=== PATIENT | male | born 1975 | race Caucasian/White ===

== ENCOUNTER 2018-12-26 11:37 | Inpatient (IN) | payer OTHER ==
[2018-12-26 12:06] VITALS: BMI 21.8
--- NOTE | 2018-12-26 14:48 | HP ---
COWS - Scale Resting Pulse: 0= [place] 80 or Below Sweatin= Chills/Flushing Restless Observation: 3= Extraneous Movement Pupil Size: 1= Pupils >than Normal Bone or Joint Aches: 2= Severe Diffuse Aches Runny Nose/ Eye Tearin= Runny Nose/Eyes GI Upset > 30mins: 2= Nausea/Diarrhea Tremor Observation: 2= Slight Tremor Visible Yawning Observation: 2= >3x During Session Anxiety or Irritability: 2=Irritable/Anxious Goose Flesh Skin: 0=Smooth Skin COWS Score: 17 CIWA Score - Admission Criteria [facility] Guidelines: Admission for Medically Managed Detox: Requires at least one of the followin. CIWA greater than 12 2. Seizures within the past 24 hours 3. Delirium tremens within the past 24 hours 4. Hallucinations within the past 24 hours 5. Acute intervention needed for co occurring medical disorder 6. Acute intervention needed for co occurring psychiatric disorder 7. Severe withdrawal that cannot be handled at a lower level of care (continued vomiting, continued diarrhea, abnormal vital signs) requiring intravenous medication and/or fluids 8. Admission ROS S - HPI Chief Complaint: i need help to stop using heroin Allergies/Adverse Reactions: Allergies Allergy/AdvReac Type Severity Reaction Status Date / Time No Known Allergies Allergy Verified 12/26/18 14:14 History of Present Illness: this 43 years old male with heroin dependence,seeking help,withdrawal symptom, i stop showed patient on suboxone 8mgs/2 mgs sl bid,last filled on 12/20/18 for 1 week, note from pmd will stop prescribed suboxone last detox 2017 [facility] completed multiple admissions in the past but keep relapsing nicotine dependence 10 cigarette weight loss no significant period of sobriety plan for rehab after detox Exam Limitations: No Limitations - Ebola screening Have you traveled outside of the country in the last 21 days: No Have you had contact with anyone from an Ebola affected area: No Have you been sick,other than usual withdrawal symptoms: No Do you have a fever: No - Review of Systems Constitutional: Chills, Loss of Appetite, Malaise, Night Sweats, Changes in sleep, Unintentional Wgt. Loss EENT: reports: Tearing, Nose Congestion Respiratory: reports: No Symptoms reported Cardiac: reports: No Symptoms Reported GI: reports: Nausea, Poor Appetite, Indigestion, Abdominal cramping : reports: No Symptoms Reported Musculoskeletal: reports: Back Pain, Joint Pain, Joint Swelling, Muscle Pain Integumentary: reports: Dryness Neuro: reports: Headache, Tremors Endocrine: reports: No Symptoms Reported Hematology: reports: No Symptoms Reported Psychiatric: reports: No Sypmtoms Reported, Judgement Intact, Mood/Affect Appropiate, Orientated x3 Other Systems: Reviewed and Negative Patient History - Patient Medical History Hx Anemia: No Hx Asthma: No Hx Chronic Obstructive Pulmonary Disease (COPD): No Hx Cardiac Disorders: No Hx Congestive Heart Failure: No Hx Hypertension: No Hx Hypercholesterolemia: No Hx Pacemaker: No HX Cerebrovascular Accident: No Hx Seizures: No Hx Dementia: No Hx Diabetes: No Hx Gastrointestinal Disorders: No Hx Liver Disease: No Hx Genitourinary Disorders: No Hx Sexually Transmitted Disorders: No Hx Renal Disease (ESRD): No Hx Thyroid Disease: No Hx Human Immunodeficiency Virus (HIV): No (last 11/15/18 negative) Hx Hepatitis C: No Hx Depression: No Hx Suicide Attempt: No Hx Bipolar Disorder: No Hx Schizophrenia: No Other Medical History: no sucidal,no homicidal - Patient Surgical History Past Surgical History: Yes Hx Abdominal Surgery: Yes (bowel obstruction and ileostomy in [place] and [facility]) Hx Appendectomy: Yes (1984) Other Surgical History: bowel obstruction 1987, illeostomy 1987 - PPD History Previous Implant?: Yes Documented Results: Negative w/o proof Implanted On Prior R Admission?: No PPD to be Administered?: Yes - Smoking Cessation Smoking history: Current every day smoker Have you smoked in the past 12 months: Yes Aproximately how many cigarettes per day: 10 Hx Chewing Tobacco Use: No Initiated information on smoking cessation: Yes 'Breaking Loose' booklet given: 12/26/18 - Substance & Tx. History Hx Alcohol Use: No Hx Substance Use: Yes Substance Use Type: Cocaine, Heroin, Marijuana Hx Substance Use Treatment: Yes (jeremiah treviño in 2018 completed) - Substances Abused Heroin Route: Inhalation Frequency: Daily Amount used: 5 bags Age of first use: 13 Date of Last Use: 12/25/18 Cocaine Route: Inhalation Frequency: Daily Amount used: 1gram Age of first use: 15 Date of Last Use: 12/24/18 Marijuana/Hashish Route: Smoking Frequency: 1-2 times per week Amount used: 10$ Age of first use: 19 Date of Last Use: 12/26/18 Family Disease History - Family Disease History Family History: Denies Admission Physical Exam [facility] - Vital Signs Vital Signs: Vital Signs - 24 hr 12/26/18 11:59 Temperature 97.8 F Pulse Rate 72 Respiratory 18 Rate Blood Pressure 124/70 - Physical General Appearance: Yes: Moderate Distress, Tremorous, Irritable, Sweating, Anxious HEENTM: Yes: Normal ENT Inspection, ANA, Pharynx Normal Respiratory: Yes: Within Normal Limits, Lungs Clear, Normal Breath Sounds Neck: Yes: Within Normal Limits, Supple, Trachea in good position Breast: Yes: Within Normal Limits Cardiology: Yes: Within Normal Limits, Regular Rhythm, Regular Rate, S1, S2 Abdominal: Yes: Within Normal Limits, Normal Bowel Sounds, Non Tender, Flat, Soft Genitourinary: Yes: Within Normal Limits Back: Yes: Normal Inspection, Muscle Spasm Musculoskeletal: Yes: full range of Motion, Back pain, Muscle Pain Extremities: Yes: Within Normal Limits, Normal Range of Motion, Tremors Neurological: Yes: feeder catcher tobacco II-XII NML intact, Fully Oriented, Alert, Motor Strength 5/5 Integumentary: Yes: Dry Lymphatic: Yes: Within Normal Limits - Diagnostic (1) Opioid dependence with withdrawal Current Visit: Yes Status: Acute (2) Cocaine dependence Current Visit: Yes Status: Acute (3) Cannabis dependence Current Visit: Yes Status: Acute (4) Encounter for monitoring Suboxone maintenance therapy Current Visit: Yes Status: Acute (5) Nicotine dependence Current Visit: Yes Status: Acute (6) Weight loss Current Visit: Yes Status: Acute Cleared for Admission [facility] - Detox or Rehab [facility] Level of Care: Medically Managed Detox Regimen/Protocol: Methadone [facility] Breath Alcohol Content Breath Alcohol Content: 0 Urine Drug Screen - Results Drug Screen Negative: No Urine Drug Screen Results: THC-Marijuana, SYDNEE-Cocaine, OPI-Opiates, OXY- Oxycodone, BUP-Suboxone Inpatient Rehab Admission - Rehab Decision to Admit Inpatient rehab admission?: No
[2018-12-26] MEDS ORDERED: MAGNESIUM CITRATE 300 ML BOTTLE PO PRN (15:03)
[2018-12-26] MEDS ORDERED: MAG HYDROX/AL HYDROX/SIMETH 30 ML UNIT-DOSE CUP PO PRN (15:03)
[2018-12-26] MEDS ORDERED: hydrOXYzine PAMOATE 25 MG CAPSULE (FP) PO PRN (15:03)
[2018-12-26] MEDS ORDERED: BISMUTH SUBSALICYLATE 262 MG/15 ML BTL PO PRN (15:03)
[2018-12-26] MEDS ORDERED: MENTHOL/PHENOL 1 EACH UD MM PRN (15:03)
[2018-12-26] MEDS ORDERED: METHOCARBAMOL 500 MG TABLET PO PRN (15:03)
[2018-12-26] MEDS ORDERED: IBUPROFEN 400 MG TABLET (FP) PO PRN ×2 (15:03)
[2018-12-26] MEDS ORDERED: ACETAMINOPHEN 325 MG TABLET (FP) PO PRN ×2 (15:03)
[2018-12-26] MEDS ORDERED: MAGNESIUM HYDROX 2400MG/30ML ORAL SUSPENSION 30 ML CUP PO PRN (15:03)
[2018-12-26] MEDS ORDERED: cloNIDine HCL 0.1 MG TABLET PO PRN (15:03)
[2018-12-26] MEDS ORDERED: METHADONE HCL 10 MG TABLET (FOR DETOX USE ONLY) PO ONE ×2 (15:08→23:00)
[2018-12-26 17:15] LABS: URINE APPEARANCE CLEAR; URINE BILIRUBIN NEGATIVE (NEGATIVE); URINE COLOR DK YELLOW; URINE GLUCOSE (UA) NEGATIVE (NEGATIVE); URINE KETONE NEGATIVE (NEGATIVE); URINE LEUK ESTERASE NEGATIVE (NEGATIVE); URINE NITRITE NEGATIVE (NEGATIVE); URINE PROTEIN NEGATIVE (NEGATIVE)
[2018-12-26] MEDS: diazePAM 5 MG TABLET PO PRN (17:33)
[2018-12-26] MEDS: THIAMINE HCL 100 MG TABLET (FP) PO SCH (22:14)
[2018-12-26] MEDS: MELATONIN 5 MG TABLETS PO PRN (22:15)
[2018-12-27] MEDS ORDERED: METHADONE HCL 10 MG TABLET (FOR DETOX USE ONLY) PO ONE (10:00)
[2018-12-27 10:40] LABS: HEMATOCRIT 41.1 % (35.4-49); HEMOGLOBIN 13.7 GM/dL (11.7-16.9); MCH 30.5 pg (25.7-33.7); MCHC 33.3 g/dl (32.0-35.9); MEAN CELL VOLUME 91.6 fl (80-96); MEAN PLT VOLUME 10.4 fl (7.5-11.1); PLATELET COUNT 179 K/MM3 (134-434); RBC 4.49 M/mm3 (4.00-5.60); RDW 13.6 % (11.9-15.9); WHITE BLOOD COUNT 5.8 K/mm3 (4.0-10.0)
[2018-12-27] MEDS: PRENATAL VITAMINS W/ FOLIC ACID TABLET (FP) PO SCH (10:49)
[2018-12-27 10:52] LABS: ALBUMIN 4.2 g/dl (3.4-5.0); ALK PHOS 59 U/L (45-117); ANION GAP 8 MMOL/L (8-16); BILIRUBIN,TOTAL 0.3 mg/dL (0.2-1); BLOOD UREA NITROGEN 23 mg/dL (7-18); CALCIUM 8.8 mg/dL (8.5-10.1); CHLORIDE 108 mmol/L (98-107); CO2 28 mmol/L (21-32); CREATININE 0.9 mg/dL (0.55-1.3); GLUCOSE,RANDOM 91 mg/dL (74-106); POTASSIUM 4.1 mmol/L (3.5-5.1); SGOT/AST 22 U/L (15-37); SGPT/ALT 33 U/L (13-61); SODIUM 143 mmol/L (136-145); TOT PROT 7.6 g/dl (6.4-8.2)
--- NOTE | 2018-12-27 11:09 | PN ---
[facility]HS COWS - Scale Resting Pulse: 0= [place] 80 or Below Sweatin= Chills/Flushing Restless Observation: 3= Extraneous Movement Pupil Size: 1= Pupils >than Normal Bone or Joint Aches: 2= Severe Diffuse Aches Runny Nose/ Eye Tearin= Runny Nose/Eyes GI Upset > 30mins: 2= Nausea/Diarrhea Tremor Observation of Outstretched Hands: 2= Slight Tremor Visible Yawning Observation: 1= 1-2x During Session Anxiety or Irritability: 2=Irritable/Anxious Goose Flesh Skin: 0=Smooth Skin COWS Score: 16 S Progress Note (SOAP) Subjective: alert,irritable,anxious,interrupted sleep,pain in the body and back Objective: 12/27/18 11:06 Vital Signs Temperature 97.9 F 12/27/18 09:25 Pulse Rate 59 L 12/27/18 09:25 Respiratory Rate 18 12/27/18 09:25 Blood Pressure 116/57 L 12/27/18 09:25 O2 Sat by Pulse Oximetry (%) ekg nsr,lvh qt/qtc 406/412 no chest pain,no sob,no dizziness Laboratory Last Values WBC 5.8 K/mm3 (4.0-10.0) 12/27/18 06:00 RBC 4.49 M/mm3 (4.00-5.60) 12/27/18 06:00 Hgb 13.7 GM/dL (11.7-16.9) 12/27/18 06:00 Hct 41.1 % (35.4-49) 12/27/18 06:00 MCV 91.6 fl (80-96) 12/27/18 06:00 MCH 30.5 pg (25.7-33.7) 12/27/18 06:00 MCHC 33.3 g/dl (32.0-35.9) 12/27/18 06:00 RDW 13.6 % (11.9-15.9) 12/27/18 06:00 Plt Count 179 K/MM3 (134-434) 12/27/18 06:00 MPV 10.4 fl (7.5-11.1) 12/27/18 06:00 Sodium 143 mmol/L (136-145) 12/27/18 06:00 Potassium 4.1 mmol/L (3.5-5.1) 12/27/18 06:00 Chloride 108 mmol/L (98-107) H 12/27/18 06:00 Carbon Dioxide 28 mmol/L (21-32) 12/27/18 06:00 Anion Gap 8 MMOL/L (8-16) 12/27/18 06:00 BUN 23 mg/dL (7-18) H 12/27/18 06:00 Creatinine 0.9 mg/dL (0.55-1.3) 12/27/18 06:00 Creat Clearance w eGFR 92.54 (>60) 12/27/18 06:00 Random Glucose 91 mg/dL (74-106) 12/27/18 06:00 Calcium 8.8 mg/dL (8.5-10.1) 12/27/18 06:00 Total Bilirubin 0.3 mg/dL (0.2-1) 12/27/18 06:00 AST 22 U/L (15-37) 12/27/18 06:00 ALT 33 U/L (13-61) 12/27/18 06:00 Alkaline Phosphatase 59 U/L (45-117) 12/27/18 06:00 Total Protein 7.6 g/dl (6.4-8.2) 12/27/18 06:00 Albumin 4.2 g/dl (3.4-5.0) 12/27/18 06:00 Urine Color Dk yellow 12/26/18 15:40 Urine Appearance Clear 12/26/18 15:40 Urine pH 7.0 (5.0-8.0) 12/26/18 15:40 Ur Specific [place] 1.032 (1.010-1.035) 12/26/18 15:40 Urine Protein Negative (NEGATIVE) 12/26/18 15:40 Urine Glucose (UA) Negative (NEGATIVE) 12/26/18 15:40 Urine Ketones Negative (NEGATIVE) 12/26/18 15:40 Urine Blood Negative (NEGATIVE) 12/26/18 15:40 Urine Nitrite Negative (NEGATIVE) 12/26/18 15:40 Urine Bilirubin Negative (NEGATIVE) 12/26/18 15:40 Urine Urobilinogen 1.0 mg/dL (0.2-1.0) 12/26/18 15:40 Ur Leukocyte Esterase Negative (NEGATIVE) 12/26/18 15:40 12/27/18 11:09 labs pending Assessment: 12/27/18 11:09 withdrawal symptom Plan: continue detox
[2018-12-27 11:23] LABS: SICKLE CELL SCREEN NEGATIVE (NEGATIVE)
--- NOTE | 2018-12-27 11:52 | EKG ---
Test Reason : Blood Pressure : / mmHG Vent. Rate : 062 BPM Atrial Rate : 062 BPM P-R Int : 146 ms QRS Dur : 098 ms QT Int : 406 ms P-R-T Axes : 068 050 044 degrees QTc Int : 412 ms NORMAL SINUS RHYTHM RSR' OR QR PATTERN IN V1 SUGGESTS RIGHT VENTRICULAR CONDUCTION DELAY VOLTAGE CRITERIA FOR LEFT VENTRICULAR HYPERTROPHY ANTEROSEPTAL INFARCT , AGE UNDETERMINED ABNORMAL ECG NO PREVIOUS ECGS AVAILABLE Confirmed by SILVA MONTIEL, DRE ([id number]) on 12/27/2018 11:51:45 AM Referred By: Confirmed By:DRE ASCENCIO MD
[2018-12-27] MEDS: THIAMINE HCL 100 MG TABLET (FP) PO SCH (23:45)
[2018-12-28] MEDS ORDERED: METHADONE HCL 10 MG TABLET (FOR DETOX USE ONLY) PO ONE (10:00)
--- NOTE | 2018-12-28 10:15 | PN ---
BHS COWS - Scale Resting Pulse: 0= [place] 80 or Below Sweatin= Chills/Flushing Restless Observation: 1= Difficult to Sit Still Pupil Size: 1= Pupils >than Normal Bone or Joint Aches: 2= Severe Diffuse Aches Runny Nose/ Eye Tearin= Runny Nose/Eyes GI Upset > 30mins: 2= Nausea/Diarrhea Tremor Observation of Outstretched Hands: 2= Slight Tremor Visible Yawning Observation: 1= 1-2x During Session Anxiety or Irritability: 2=Irritable/Anxious Goose Flesh Skin: 0=Smooth Skin COWS Score: 14 S Progress Note (SOAP) Subjective: alert,irritable,anxious,interrupted sleep,tremor Objective: 12/28/18 10:16 Vital Signs Temperature 98.2 F 12/28/18 09:51 Pulse Rate 63 12/28/18 09:51 Respiratory Rate 18 12/28/18 09:51 Blood Pressure 119/52 L 12/28/18 09:51 O2 Sat by Pulse Oximetry (%) Laboratory Last Values WBC 5.8 K/mm3 (4.0-10.0) 12/27/18 06:00 RBC 4.49 M/mm3 (4.00-5.60) 12/27/18 06:00 Hgb 13.7 GM/dL (11.7-16.9) 12/27/18 06:00 Hct 41.1 % (35.4-49) 12/27/18 06:00 MCV 91.6 fl (80-96) 12/27/18 06:00 MCH 30.5 pg (25.7-33.7) 12/27/18 06:00 MCHC 33.3 g/dl (32.0-35.9) 12/27/18 06:00 RDW 13.6 % (11.9-15.9) 12/27/18 06:00 Plt Count 179 K/MM3 (134-434) 12/27/18 06:00 MPV 10.4 fl (7.5-11.1) 12/27/18 06:00 Sickle Cell Screen Negative (NEGATIVE) 12/27/18 06:00 Sodium 143 mmol/L (136-145) 12/27/18 06:00 Potassium 4.1 mmol/L (3.5-5.1) 12/27/18 06:00 Chloride 108 mmol/L (98-107) H 12/27/18 06:00 Carbon Dioxide 28 mmol/L (21-32) 12/27/18 06:00 Anion Gap 8 MMOL/L (8-16) 12/27/18 06:00 BUN 23 mg/dL (7-18) H 12/27/18 06:00 Creatinine 0.9 mg/dL (0.55-1.3) 12/27/18 06:00 Creat Clearance w eGFR 92.54 (>60) 12/27/18 06:00 Random Glucose 91 mg/dL (74-106) 12/27/18 06:00 Calcium 8.8 mg/dL (8.5-10.1) 12/27/18 06:00 Total Bilirubin 0.3 mg/dL (0.2-1) 12/27/18 06:00 AST 22 U/L (15-37) 12/27/18 06:00 ALT 33 U/L (13-61) 12/27/18 06:00 Alkaline Phosphatase 59 U/L (45-117) 12/27/18 06:00 Total Protein 7.6 g/dl (6.4-8.2) 12/27/18 06:00 Albumin 4.2 g/dl (3.4-5.0) 12/27/18 06:00 Urine Color Dk yellow 12/26/18 15:40 Urine Appearance Clear 12/26/18 15:40 Urine pH 7.0 (5.0-8.0) 12/26/18 15:40 Ur Specific [place] 1.032 (1.010-1.035) 12/26/18 15:40 Urine Protein Negative (NEGATIVE) 12/26/18 15:40 Urine Glucose (UA) Negative (NEGATIVE) 12/26/18 15:40 Urine Ketones Negative (NEGATIVE) 12/26/18 15:40 Urine Blood Negative (NEGATIVE) 12/26/18 15:40 Urine Nitrite Negative (NEGATIVE) 12/26/18 15:40 Urine Bilirubin Negative (NEGATIVE) 12/26/18 15:40 Urine Urobilinogen 1.0 mg/dL (0.2-1.0) 12/26/18 15:40 Ur Leukocyte Esterase Negative (NEGATIVE) 12/26/18 15:40 RPR Titer Nonreactive (NONREACTIVE) 12/27/18 06:00 HIV 1&2 Antibody Screen Negative 12/27/18 06:00 HIV P24 Antigen Negative 12/27/18 06:00 Assessment: withdrawal symptom Plan: continue detox
[2018-12-28] MEDS: PRENATAL VITAMINS W/ FOLIC ACID TABLET (FP) PO SCH (10:25)
[2018-12-28] MEDS: diazePAM 5 MG TABLET PO PRN (18:34)
[2018-12-28] MEDS: THIAMINE HCL 100 MG TABLET (FP) PO SCH (23:08)
[2018-12-29] MEDS ORDERED: METHADONE HCL 10 MG TABLET (FOR DETOX USE ONLY) PO ONE (10:00)
[2018-12-29] MEDS: PRENATAL VITAMINS W/ FOLIC ACID TABLET (FP) PO SCH (10:17)
[2018-12-29] MEDS: diazePAM 5 MG TABLET PO PRN (10:17)
--- NOTE | 2018-12-29 12:35 | PN ---
BHS Progress Note (SOAP) Subjective: Interrupted sleep, shakes and sweats Objective: 12/29/18 12:34 Vital Signs - 8 hr 12/29/18 12/29/18 08:25 09:39 Temperature 97.5 F L 98.1 F Pulse Rate 67 75 Respiratory 18 18 Rate Blood Pressure 145/78 117/59 L Laboratory Last Values WBC 5.8 K/mm3 (4.0-10.0) 12/27/18 06:00 RBC 4.49 M/mm3 (4.00-5.60) 12/27/18 06:00 Hgb 13.7 GM/dL (11.7-16.9) 12/27/18 06:00 Hct 41.1 % (35.4-49) 12/27/18 06:00 MCV 91.6 fl (80-96) 12/27/18 06:00 MCH 30.5 pg (25.7-33.7) 12/27/18 06:00 MCHC 33.3 g/dl (32.0-35.9) 12/27/18 06:00 RDW 13.6 % (11.9-15.9) 12/27/18 06:00 Plt Count 179 K/MM3 (134-434) 12/27/18 06:00 MPV 10.4 fl (7.5-11.1) 12/27/18 06:00 Sickle Cell Screen Negative (NEGATIVE) 12/27/18 06:00 Sodium 143 mmol/L (136-145) 12/27/18 06:00 Potassium 4.1 mmol/L (3.5-5.1) 12/27/18 06:00 Chloride 108 mmol/L (98-107) H 12/27/18 06:00 Carbon Dioxide 28 mmol/L (21-32) 12/27/18 06:00 Anion Gap 8 MMOL/L (8-16) 12/27/18 06:00 BUN 23 mg/dL (7-18) H 12/27/18 06:00 Creatinine 0.9 mg/dL (0.55-1.3) 12/27/18 06:00 Creat Clearance w eGFR 92.54 (>60) 12/27/18 06:00 Random Glucose 91 mg/dL (74-106) 12/27/18 06:00 Calcium 8.8 mg/dL (8.5-10.1) 12/27/18 06:00 Total Bilirubin 0.3 mg/dL (0.2-1) 12/27/18 06:00 AST 22 U/L (15-37) 12/27/18 06:00 ALT 33 U/L (13-61) 12/27/18 06:00 Alkaline Phosphatase 59 U/L (45-117) 12/27/18 06:00 Total Protein 7.6 g/dl (6.4-8.2) 12/27/18 06:00 Albumin 4.2 g/dl (3.4-5.0) 12/27/18 06:00 Urine Color Dk yellow 12/26/18 15:40 Urine Appearance Clear 12/26/18 15:40 Urine pH 7.0 (5.0-8.0) 12/26/18 15:40 Ur Specific [place] 1.032 (1.010-1.035) 12/26/18 15:40 Urine Protein Negative (NEGATIVE) 12/26/18 15:40 Urine Glucose (UA) Negative (NEGATIVE) 12/26/18 15:40 Urine Ketones Negative (NEGATIVE) 12/26/18 15:40 Urine Blood Negative (NEGATIVE) 12/26/18 15:40 Urine Nitrite Negative (NEGATIVE) 12/26/18 15:40 Urine Bilirubin Negative (NEGATIVE) 12/26/18 15:40 Urine Urobilinogen 1.0 mg/dL (0.2-1.0) 12/26/18 15:40 Ur Leukocyte Esterase Negative (NEGATIVE) 12/26/18 15:40 RPR Titer Nonreactive (NONREACTIVE) 12/27/18 06:00 HIV 1&2 Antibody Screen Negative 12/27/18 06:00 HIV P24 Antigen Negative 12/27/18 06:00 Labs noted Assessment: 12/29/18 12:34 Withdrawal sx Plan: Continue detox
[2018-12-29] MEDS: THIAMINE HCL 100 MG TABLET (FP) PO SCH (22:31)
[2018-12-29] MEDS: MELATONIN 5 MG TABLETS PO PRN (22:31)
[2018-12-30] MEDS ORDERED: METHADONE HCL 5 MG TABLET (FOR DETOX USE ONLY) PO ONE (06:00)
--- NOTE | 2018-12-30 09:21 | DS ---
[facility] Detox Discharge Summary Admission Date: 12/26/18 Discharge Date: 12/30/18 - History Present History: Cannabis Dependence, Cocaine Dependence, Opioid Dependence - Physical Exam Results Vital Signs: Vital Signs Temperature 97.9 F 12/30/18 07:50 Pulse Rate 69 12/30/18 07:50 Respiratory Rate 18 12/30/18 07:50 Blood Pressure 138/72 12/30/18 07:50 O2 Sat by Pulse Oximetry (%) - Treatment Hospital Course: Detox Protocol Followed, Detoxed Safely, Responded well, Discharged Condition Good, Rehab Referral Accepted - Medication Discharge Medications: Ambulatory Orders NK [No Known Home Medication] 12/26/18 - Diagnosis (1) Cannabis dependence Current Visit: Yes Status: Chronic (2) Cocaine dependence Current Visit: Yes Status: Chronic Qualifiers: Substance use status: uncomplicated Qualified Code(s): F14.20 - Cocaine dependence, uncomplicated (3) Encounter for monitoring Suboxone maintenance therapy Current Visit: Yes Status: Acute (4) Nicotine dependence Current Visit: Yes Status: Chronic Qualifiers: Nicotine product type: cigarettes Substance use status: uncomplicated Qualified Code(s): F17.210 - Nicotine dependence, cigarettes, uncomplicated (5) Opioid dependence with withdrawal Current Visit: Yes Status: Acute (6) Weight loss Current Visit: Yes Status: Acute - AMA Did Patient Leave Against Medical Advice: No (referred to rehab. )
[2018-12-30 09:55] VITALS: BP 119/65; PULSE 68; TEMP 98.2
== END 2018-12-30 10:14 | disposition home or self-care (01) | DRG 773 ==
LOC: YASAS 11:37 → Y6N 14:48
PROVIDERS: ADMIT Surgery; ATTEND Surgery
PROC: HZ2ZZZZ Detoxification Services for Substance Abuse Treatment (ICD-10-PCS; principal; 2018-12-26)
DX: F11.23 Opioid dependence with withdrawal (principal); F14.20 Cocaine dependence, uncomplicated; F11.20 Opioid dependence, uncomplicated; F17.210 Nicotine dependence, cigarettes, uncomplicated; R63.4 Abnormal weight loss; Z68.21 Body mass index [BMI] 21.0-21.9, adult; Z51.81 Encounter for therapeutic drug level monitoring
CPT/HCPCS: 36415; 80053; 81003; 85027; 85660; 86593; 87389; 93005; 93010; J0735